=== PATIENT | female | born 1995 | race Native Hawaiian/Other Pacific Islander ===

== ENCOUNTER 2020-12-19 11:22 | Observation (INO) | payer OTHER ==
[~2020-12-19] VITALS: Ht 165.1 cm; Wt 85.7 kg
[2020-12-19 11:45] VITALS: BP 133/61
[2020-12-19] MEDS ORDERED: PREN-94 PO (11:59)
[2020-12-19] MEDS ORDERED: CALC-1085 PO (11:59)
[2020-12-19 12:34] LABS: GLUCOMETER DEV NAME(LOC) 4S.; GLUCOSE,POINT OF CARE 80 MG/DL (70-110)
== END 2020-12-19 12:40 | disposition home or self-care (01) ==
LOC: INTOOBSV 11:22 → 4S 11:22
PROVIDERS: ADMIT Obstetrics & Gynecology; ATTEND Obstetrics & Gynecology
DX: Z34.93 Encounter for supervision of normal pregnancy, unspecified, third trimester (principal); Z3A.28 28 weeks gestation of pregnancy; Z79.899 Other long term (current) drug therapy
CPT/HCPCS: 59025; 81001; 82962; 99219; 99285